=== PATIENT | female | born 1945 | race Caucasian/White ===

== ENCOUNTER 2019-07-10 05:15 | Inpatient (IN) | payer MEDICARE ==
[~2019-07-10] VITALS: Ht 157.5 cm; Wt 79.2 kg
[2019-07-10] MEDS ORDERED: ROPI1TAB11 PO (05:43)
[2019-07-10] MEDS ORDERED: LEVO75 PO (05:43)
[2019-07-10] MEDS ORDERED: MONT10TA21 PO (05:43)
[2019-07-10] MEDS ORDERED: TRAM50TA4 PO (05:43)
[2019-07-10] MEDS ORDERED: PROP40TA7 PO (05:43)
[2019-07-10] MEDS ORDERED: BACL10TA PO (05:43)
[2019-07-10] MEDS ORDERED: TEMA15CA PO (05:43)
[2019-07-10] MEDS ORDERED: AMLO5TAB9 PO (05:43)
[2019-07-10] MEDS ORDERED: PREG50 PO (05:45)
[2019-07-10] MEDS ORDERED: ASPIRIN 325 MG TABLET PO ONE (05:45)
[2019-07-10] MEDS ORDERED: FLUT1BLS IH (05:45)
[2019-07-10 05:50] LABS: BASOPHILS % (AUTO) 1.1 % (0.0-2.0); EOSINOPHILS % (AUTO) 2.1 % (1.0-6.0); HEMATOCRIT 35.2 % (36-46); HEMOGLOBIN 11.9 g/dL (12.0-16.0); LYMPHOCYTES # (AUTO) 2.5 K/uL (1.0-4.8); LYMPHOCYTES % (AUTO) 26.3 % (22.0-44.0); MEAN CORPUSCULAR HEMOGLOBIN 31.6 pg (26.0-34.0); MEAN CORPUSCULAR HGB CONC 33.7 G/dL (31.0-37.0); MEAN CORPUSCULAR VOLUME 94 fL (80-100); MONOCYTES % (AUTO) 10.3 % (2.0-9.0); NEUTROPHILS # (AUTO) 5.8 K/uL (1.8-7.7); NEUTROPHILS % (AUTO) 60.2 % (40.0-70.0); PLATELET COUNT (AUTO) 273 K/uL (150-450); RED BLOOD CELL COUNT(AUTO) 3.76 MIL/uL (4.00-5.20); RED CELL DISTRIBUTION WIDTH 13.1 % (11.5-14.5)
[2019-07-10 07:20] LABS: CALCIUM, TOTAL 8.7 mg/dL (8.8-10.5); CREATININE 1.01 mg/dL (0.60-1.30); POTASSIUM 3.9 mmol/L (3.5-5.1)
[2019-07-10 07:24] LABS: PROTHROMBIN TIME 9.7 SEC (9.4-11.6)
[2019-07-10 07:25] LABS: ALBUMIN 3.3 g/dL (3.4-5.0); BILIRUBIN,TOTAL 0.4 mg/dL (0.1-1.0); TOTAL PROTEIN, SERUM 7.4 g/dL (6.4-8.2)
[2019-07-10 09:10] LABS: APPEARANCE,URINE CLEAR (CLEAR); BILIRUBIN,URINE NEGATIVE (NEGATIVE); GLUCOSE, URINE (UA) 250 mg/dL (NEGATIVE); KETONES,URINE NEGATIVE (NEGATIVE); LEUKOCYTE ESTERASE ,URINE NEGATIVE (NEGATIVE); NITRATE,URINE NEGATIVE (NEGATIVE); OCCULT BLOOD,URINE NEGATIVE (NEGATIVE); PH,URINE 5.5 (5.0-8.0); PROTEIN,URINE NEGATIVE (NEGATIVE); UROBILINOGEN,URINE 0.2 mg/dL (<=1.0)
[2019-07-10 09:11] LABS: AMPHET/METH SCREEN,URINE NEGATIVE (NEGATIVE); BARBITURATE SCREEN, URINE NEGATIVE (NEGATIVE); BENZODIAZEPINES SCREEN,URINE POSITIVE (NEGATIVE); CANNABINOID SCREEN,URINE NEGATIVE (NEGATIVE); COCAINE SCREEN,URINE NEGATIVE (NEGATIVE); METHADONE SCREEN, URINE NEGATIVE (NEGATIVE); OPIATE SCREEN,URINE NEGATIVE (NEGATIVE)
[2019-07-10 09:12] LABS: PHENCYCLIDINE SCREEN,URINE NEGATIVE (NEGATIVE)
[2019-07-10 09:34] LABS: BACTERIA,URINE None Seen /HPF (None Seen); RBC,URINE None Seen /HPF (0-2); SQUAMOUS EPITHELIAL CELL,UR Few /LPF (None Seen); URIC ACID CRYSTALS,URINE Moderate /LPF (None Seen); WBC,URINE None Seen /HPF (0-5)
[2019-07-10] MEDS ORDERED: CYCLOBENZAPRINE HCL 10 MG TABLET PO PRN (12:45)
[2019-07-10] MEDS ORDERED: OxyCODONE HCL/ACETAMINOPHEN 5-325 MG TABLET PO PRN (12:45)
[2019-07-10 15:45] VITALS: BP 171/70
[2019-07-10 16:00] VITALS: BP 154/58
[2019-07-10] MEDS ORDERED: ZOLPIDEM TARTRATE 10 MG TABLET PO PRN (16:00)
[2019-07-10] MEDS ORDERED: MORPHINE SULFATE 2 MG/ML SYRINGE IVP PRN (16:00)
[2019-07-10] MEDS ORDERED: TEMAZEPAM 15 MG CAPSULE PO PRN ×2 (16:00→21:45)
[2019-07-10] MEDS ORDERED: HYDROCODONE/ACETAMINOPHEN 5-325 MG TABLET PO PRN (16:00)
[2019-07-10] MEDS ORDERED: ACETAMINOPHEN 325 MG TABLET PO PRN (16:00)
[2019-07-10] MEDS ORDERED: MAGNESIUM HYDROXIDE SUSPENSION 30 ML UDCUP PO PRN (16:00)
[2019-07-10] MEDS ORDERED: TraMADol HCL 50 MG TABLET PO PRN ×2 (16:00→21:45)
[2019-07-10] MEDS ORDERED: ONDANSETRON HCL 4 MG/2 ML VIAL IVP PRN (16:00)
[2019-07-10] MEDS ORDERED: IPRATROPIUM BROMIDE 0.5 MG/2.5 ML NEB SOLUTION NEB PRN (16:00)
[2019-07-10] MEDS ORDERED: PNEUMOCOCCAL VACCINE POLYVALENT 0.5 ML VIAL [PPSV23] IM ONE (16:45)
[2019-07-10] MEDS: PROPRANOLOL HCL 40 MG TABLET PO SCH ×2 (17:18→21:09)
[2019-07-10] MEDS: AmLODIPine BESYLATE 5 MG TABLET PO SCH (17:18)
[2019-07-10] MEDS: PREGABALIN 50 MG CAPSULE PO SCH ×2 (17:18→22:02)
[2019-07-10] MEDS: BACLOFEN 10 MG TABLET PO SCH ×2 (17:18→21:10)
[2019-07-10] MEDS: FLUTICASONE/VILANTEROL 200-25 MCG/INH INHALER [14] IH SCH (17:19)
[2019-07-10] MEDS: NITROGLYCERIN 2% (1 GM=INCH) PACKET TP SCH (17:47)
[2019-07-10 20:05] VITALS: BP 140/67
[2019-07-10] MEDS ORDERED: MONTELUKAST SODIUM 10 MG TABLET PO SCH (21:00)
[2019-07-10 21:05] VITALS: BP 146/66
[2019-07-10] MEDS: DOCUSATE SODIUM 100 MG CAPSULE PO SCH (21:09)
[2019-07-10] MEDS: ROPINIRole HCL 1 MG TABLET PO SCH (21:09)
[2019-07-11] VITALS: BP 120/49
[2019-07-11] MEDS: NITROGLYCERIN 2% (1 GM=INCH) PACKET TP SCH ×3 (00:08→12:28)
[2019-07-11 04:00] VITALS: BP 140/68
[2019-07-11 05:37] LABS: CHOL/HDL RATIO 3.4 (3.9-5.7)
[2019-07-11] MEDS ORDERED: LEVOTHYROXINE SODIUM 75 MCG TABLET PO SCH (06:30)
[2019-07-11 08:00] VITALS: BP 137/81
[2019-07-11] MEDS: DOCUSATE SODIUM 100 MG CAPSULE PO SCH (09:00)
[2019-07-11] MEDS ORDERED: ASPIRIN 81 MG CHEWABLE TABLET PO SCH (09:00)
[2019-07-11] MEDS: ROPINIRole HCL 1 MG TABLET PO SCH (09:29)
[2019-07-11] MEDS: PREGABALIN 50 MG CAPSULE PO SCH (09:29)
[2019-07-11] MEDS: FLUTICASONE/VILANTEROL 200-25 MCG/INH INHALER [14] IH SCH (09:30)
[2019-07-11] MEDS: BACLOFEN 10 MG TABLET PO SCH (09:30)
[2019-07-11] MEDS: PROPRANOLOL HCL 40 MG TABLET PO SCH (09:30)
[2019-07-11] MEDS: AmLODIPine BESYLATE 5 MG TABLET PO SCH (09:30)
[2019-07-11 12:00] VITALS: BP 142/51
[2019-07-11] MEDS ORDERED: PREG50CA63 PO (13:13)
== END 2019-07-11 14:40 | disposition home or self-care (01) | DRG 93 ==
LOC: EMS 05:16 → ICUN 15:12
PROVIDERS: ADMIT Hospitalist; ATTEND Hospitalist
DX: R29.810 Facial weakness (principal); R07.89 Other chest pain; E03.9 Hypothyroidism, unspecified; M79.7 Fibromyalgia; I10 Essential (primary) hypertension; J45.909 Unspecified asthma, uncomplicated; G25.81 Restless legs syndrome; T42.6X5A Adverse effect of other antiepileptic and sedative-hypnotic drugs, initial encounter; Y92.89 Other specified places as the place of occurrence of the external cause
CPT/HCPCS: 70496; 70544; 70551; 87081; 93005; 93306; G0378